=== PATIENT | female | born 1970 | race Two or more races ===

== ENCOUNTER 2020-07-02 10:18 | Emergency (ER) | payer BC ==
[2020-07-02] MEDS ORDERED: IPRATROPIUM/ALBUTEROL 0.5-2.5 MG/3 ML AMPUL NEB ONE (10:42)
[2020-07-02] MEDS ORDERED: PREDNISONE 20 MG TABLET PO ONE (10:42)
[2020-07-02] MEDS: ALBUTEROL SULFATE 0.083% NEB 2.5 MG/3 ML AMPUL NEB SCH ×2 (10:59→11:19)
[2020-07-02] MEDS ORDERED: NORMAL SALINE 1000 ML 1,000 ML IV ONE (11:12)
--- NOTE | 2020-07-02 11:14 | RADIOLOGY REPORT (SQ) ---
EXAM DESCRIPTION: CHEST SINGLE VIEW IMAGES COMPLETED DATE/TIME: 07/02/2020 11:03 am REASON FOR STUDY: SOB COMPARISON: None. EXAM PARAMETERS: NUMBER OF VIEWS: One view. TECHNIQUE: Single frontal radiographic view of the chest acquired. RADIATION DOSE: NA LIMITATIONS: None. FINDINGS: LUNGS AND PLEURA: Low lung volumes. No opacities, masses or pneumothorax. No pleural effu michel. MEDIASTINUM AND HILAR STRUCTURES: No masses. Contour normal. HEART AND VASCULAR STRUCTURES: Heart normal in size. Normal vasculature. BONES: No acute findings. HARDWARE: None in the chest. OTHER: No other significant finding. IMPRESSION: Low lung volumes without evidence of acute cardiopulmonary process. TECHNICAL DOCUMENTATION: JOB ID: [id number] 2010 [employer]- All Rights Reserved Reading location - IP/workstation name: [email or web address]
[2020-07-02 11:33] LABS: ABSOLUTE MONOCYTES (AUTO) 0.9 10^3/uL (0.1-1.4); ABSOLUTE NEUT (AUTO) 15.1 10^3/uL (1.7-8.2); BASOPHILS % (AUTO) 0.3 % (0-2); EOSINOPHILS % (AUTO) 0.1 % (0-6); HEMATOCRIT 37.4 % (36.0-47.0); HEMOGLOBIN 12.4 g/dL (12.0-15.5); LYMPHOCYTES % (AUTO) 5.6 % (13-45); MEAN CORPUSCULAR HEMOGLOBIN 27.2 pg (27.0-33.4); MEAN CORPUSCULAR HGB CONC 33.2 g/dL (32.0-36.0); MEAN CORPUSCULAR VOLUME 82 fl (80-97); MONOCYTES % (AUTO) 5.3 % (3-13); PLATELET COUNT 355 10^3/uL (150-450); RED BLOOD COUNT 4.57 10^6/uL (3.72-5.28); RED CELL DISTRIBUTION WIDTH 13.6 % (11.5-14.0); SEGMENTED NEUTROPHILS % (AUTO) 88.7 % (42-78); TOTAL CELLS COUNTED % (AUTO) 100 %
--- NOTE | 2020-07-02 11:50 | ER Document Report ---
Entered by BAKARI WATSON SCRIBE 07/02/20 1114 Acting as scribe for:ARLEEN EASON MD ED Respiratory Problem - General Chief Complaint: Shortness Of Breath Stated Complaint: COUGH Time Seen by Provider: 07/02/20 11:01 Information source: Patient Notes: This 49 year old female patient with asthma presents to the emergency department today with complaints of shortness of breath for the past two weeks. Patient states she has also had a cough bringing up a dark yellow sputum. She did get a flu shot this year. Patient had a fever on arrival here. At baseline patient reports she uses her inhalers daily. - Related Data Allergies/Adverse Reactions: shellfish derived Allergy (Verified 07/02/20 10:39) PCN Allergy (Uncoded 07/02/20 10:39) Home Medications: ALBUTEROL. BREO Past Medical History - General Information source: Patient - Social History Smoking Status: Never Smoker Cigarette use (# per day): No Frequency of alcohol use: None Drug Abuse: None Lives with: Spouse/Significant other Family History: Reviewed & Not Pertinent Patient has homicidal ideation: No - Past Medical History Cardiac Medical History: Reports: Hx Hypercholesterolemia - previously medicated, now under control Pulmonary Medical History: Reports: Hx Asthma GI Medical History: Reports: Hx Gastroesophageal Reflux Disease Traumatic Medical History: Reports: Hx Fractures Past Surgical History: Reports: Hx Orthopedic Surgery - right tib/fib ORIF Review of Systems - Review of Systems Constitutional: See HPI, Fever EENT: No symptoms reported Cardiovascular: No symptoms reported Respiratory: See HPI, Cough, Short of breath, Sputum - dark yellow, Wheezing Gastrointestinal: No symptoms reported Genitourinary: No symptoms reported Female Genitourinary: Last menstrual period - currently on period Musculoskeletal: No symptoms reported Skin: No symptoms reported Hematologic/Lymphatic: No symptoms reported Neurological/Psychological: No symptoms reported -: Yes All other systems reviewed and negative Physical Exam - Vital signs Vitals: Temp Pulse Resp BP Pulse Ox 101.7 F H 120 H 24 H 149/76 H 94 07/02/20 10:29 07/02/20 10:29 07/02/20 10:29 07/02/20 10:29 07/02/20 10:29 - Notes Notes: Physical Exam: General: Alert, appears short of breath. HEENT: Normocephalic. Atraumatic. PERRL. Extraocular movements intact. Oropharynx clear. Neck: Supple. Non-tender. Respiratory: Moderate respiratory distress. Dyspneic. Wheezing rhonchi bilaterally. Retractions. Cardiovascular: Tachycardic, regular rhythm. Abdominal: Obese. Non-tender. No distension. Normal Bowel Sounds. Back: No gross abnormalities. Extremities: Moves all four extremities. Upper extremities: Normal inspection. Normal ROM. Lower extremities: Normal inspection. No edema. Normal ROM. Neurological: Normal cognition. AAOx4. Normal speech. Psychological: Normal affect. Normal Mood. Skin: Warm. Dry. Normal color. Course - Re-evaluation Re-evalutation: 07/02/20 14:40 After breathing treatments, the patient wheezes have cleared. She now has a bronchitis type cough. The patient will be placed on antibiotics, as she does report coughing up a thick green and yellow sputum. She does have risk factors which include her chronic asthma requiring her to use her inhaler several times a day normally, much more frequently now that she has gotten sick. The patient was evaluated during the global COVID-19 pandemic and that diagnosis was suspected/considered upon their initial presentation. Their evaluation, treatment and testing was consistent with current guidelines for patients who present with complaints or symptoms that may be related to COVID-19. - Vital Signs Vital signs: Temp Pulse Resp BP Pulse Ox 100.4 F 126 H 22 H 164/87 H 93 07/02/20 13:04 07/02/20 12:16 07/02/20 12:16 07/02/20 12:16 07/02/20 12:16 - Laboratory Results Result Diagrams: 07/02/20 11:09 07/02/20 11:09 Laboratory Results Interpreted: 07/02/20 07/02/20 11:09 11:09 WBC 17.0 H Lymph % (Auto) 5.6 L Absolute Neuts (auto) 15.1 H Seg Neutrophils % 88.7 H Sodium 134.6 L Creatinine 0.49 L Glucose 163 H Critical Laboratory Results Reviewed: No Critical Results - Radiology Results Critical Radiology Results Reviewed: No Critical Results - Low lung volumes without acute cardiopulmonary abnormalities. - EKG Interpretation by Sd EKG shows normal: Sinus rhythm, [place], Intervals, QRS Complexes. abnormal: ST-T Waves - Nonspecific inferior T abnormalities Rate: Tachycardia - 118 [place]/QRS: Left axis deviation Discharge - Discharge Clinical Impression: Bronchitis, acute, with bronchospasm Condition: Stable Disposition: HOME, SELF-CARE Instructions: COVID-19 Guidance for Persons Under Investigation Additional Instructions: Bronchitis with Bronchospasm (Wheezing) You have bronchitis with bronchospasm (wheezing). Sometimes people develop wheezing with a chest cold. This occurs either because of an underlying tendency toward asthma or because the virus itself irritates the bronchial tubes. This irritation causes cough, shortness of breath, and wheezing. Emergency treatment of bronchospasm may include adrenaline shots or bronchodilator aerosol. You may feel lightheaded and have a rapid pulse for an hour or two. Rest and get plenty of fluids. At home, we'll treat you with a bronchodilator inhaler. Corticosteroids may be required for some patients. Until you recover, avoid chemical fumes, dusts, pollens, and exercising in very cold or dry air. If you smoke, stop now! Most cases of bronchitis get better without antibiotics. We prescribe antibiotics when we believe bacteria are damaging your airways, or if there's high risk the bronchitis will worsen into pneumonia. Increase your fluid intake. A cool mist humidifier may make your lungs more comfortable. An expectorant (cough medicine that loosens phlegm) can help. Repeated episodes of bronchitis and bronchospasm may result in lung damage -- for example, chronic bronchitis, recurrent pneumonias, or emphysema. If you develop a fever, increased wheezing, chest pain, or severe shortness of breath, you should contact the doctor immediately. Take medications as prescribed. Start the prednisone tomorrow-- you had today's dose here in the emergency room. Try Robitussin-DM or Delsym DM to help control your cough, in addition to the Tessalon Perles that were prescribed to help with your cough. Use your inhalers as needed for wheezing. Drink plenty of fluids throughout the day and evening. Get plenty of rest. Follow-up with your primary care provider if not improving. Return to work Sunday unless your Covid test is positive, or you have not improved enough to return to work. RETURN TO THE EMERGENCY ROOM IF ANY NEW OR WORSENING SYMPTOMS. Prescriptions: Prednisone [Deltasone 10 mg Tablet] 10 mg PO ASDIR PRN #21 tablet PRN Reason: Doxycycline Hyclate 100 mg PO BID #20 tablet. Albuterol Sulfate [Proair Hfa Inhalation Aerosol 8.5 gm Mdi] 2 puff IH ASDIR PRN #1 mdi PRN Reason: Benzonatate [Tessalon Perles 100 mg Capsule] 100 mg PO ASDIR PRN #30 capsule PRN Reason: Albuterol Sulfate [Ventolin 0.083% Neb 2.5 mg/3 mL Ampul] 1 vial NEB Q4 PRN #50 vial PRN Reason: Forms: Return to Work I personally performed the services described in the documentation, reviewed and edited the documentation which was dictated to the scribe in my presence, and it accurately records my words and actions.
[2020-07-02] MEDS ORDERED: ACETAMINOPHEN 325 MG TABLET PO ONE (11:53)
[2020-07-02 11:54] LABS: ALBUMIN 4.1 g/dL (3.5-5.0); ALKALINE PHOSPHATASE 73 U/L (38-126); ANION GAP 8 (5-19); ASPARTATE AMINO TRANSFERASE 24 U/L (14-36); BILIRUBIN,TOTAL 1.1 mg/dL (0.2-1.3); BLOOD UREA NITROGEN 13 mg/dL (7-20); CALCIUM 8.8 mg/dL (8.4-10.2); CARBON DIOXIDE 26 mmol/L (22-30); CHLORIDE 101 mmol/L (98-107); GLUCOSE 163 mg/dL (75-110); POTASSIUM 3.9 mmol/L (3.6-5.0); TOTAL PROTEIN 7.9 g/dL (6.3-8.2)
[2020-07-02 12:54] LABS: A TYPE INFLUENZA AG NEGATIVE (NEGATIVE); B INFLUENZA AG NEGATIVE (NEGATIVE)
[2020-07-02 15:02] VITALS: BP 137/78
--- NOTE | 2020-07-03 17:23 | EKG REPORT ---
SEVERITY:- ABNORMAL ECG - SINUS TACHYCARDIA BORDERLINE LEFT AXIS DEVIATION NONSPECIFIC T ABNORMALITIES, INFERIOR LEADS : Confirmed by: Hina Us MD 03-Jul-2020 17:22:42
== END 2020-07-02 15:01 | disposition home or self-care (01) ==
LOC: ER 10:18
DX: J20.9 Acute bronchitis, unspecified (principal); R06.02 Shortness of breath; R05 Cough; R50.9 Fever, unspecified; E66.9 Obesity, unspecified; Z20.828 Contact with and (suspected) exposure to other viral communicable diseases; E78.00 Pure hypercholesterolemia, unspecified; Z88.0 Allergy status to penicillin
CPT/HCPCS: 93005; 94640 ×2; 99285; 96360; 36415; 87040; 87070; 87205; 83605; 85025; 87077; 80053; 87186; 87804; 71045; 93010; U0003; J7512; J7030; J7613; C9803; 87635

== ENCOUNTER 2020-07-05 23:29 | Observation (INO) | payer BC ==
[2020-07-06] MEDS ORDERED: METHYLPREDNISOLONE INJ 125 MG/2 ML SDV IV ONE (00:16)
[2020-07-06] MEDS ORDERED: IPRATROPIUM/ALBUTEROL 0.5-2.5 MG/3 ML AMPUL NEB ONE ×2 (00:16→05:53)
[2020-07-06] MEDS ORDERED: ACETAMINOPHEN WITH CODEINE #3 TABLET PO ONE (00:16)
--- NOTE | 2020-07-06 00:17 | ER Document Report ---
ED Medical Screen (RME) - General Chief Complaint: Breathing Difficulty Stated Complaint: BREATHING DIFFICULTY Time Seen by Provider: 07/06/20 00:12 Mode of Arrival: Ambulatory Information source: Patient Notes: Patient is a 49-year-old female returns emergency room complaining of increased shortness of breath with coughing. Patient was seen Christo night diagnosed with bronchitis and sent home on albuterol inhaler and some steroids and Tessalon Perles and an antibiotic. Patient states she is not getting any better. She states that she was tested for the coronavirus and was negative. She denies any other medical problems with exception of hypertension. And she had some GI problems several years ago. Patient is currently on a steroid taper. Physical examination: Patient is a well-nourished well-developed 49-year-old female no apparent distress but is definitely uncomfortable appearing and active hacking coughing during examination. Cardiac: Patient is displaying a tachycardic rate at 109 bpm on monitor no murmurs were auscultated. Lungs: Bilateral breath sounds are increased throughout but patient has some beer wheezing inspiratory and expiratory with some faint rhonchi scattered throughout the lung salazar in the upper areas. Abdomen: Bowel sounds present all 4 quads nontender to palpate. I have greeted and performed a rapid initial assessment of this patient. A co mprehensive ED assessment and evaluation of the patient, analysis of test results and completion of the medical decision making process will be conducted by additional ED providers. Dictation of this chart was performed using voice recognition software; therefore, there may be some unintended grammatical errors. - Related Data Allergies/Adverse Reactions: shellfish derived Allergy (Verified 07/02/20 10:39) PCN Allergy (Uncoded 07/02/20 10:39) Past Medical History - Past Medical History Cardiac Medical History: Reports: Hx Hypercholesterolemia - previously medicated, now under control Pulmonary Medical History: Reports: Hx Asthma GI Medical History: Reports: Hx Gastroesophageal Reflux Disease Traumatic Medical History: Reports: Hx Fractures Past Surgical History: Reports: Hx Orthopedic Surgery - right tib/fib ORIF Physical Exam - Vital signs Vitals: Temp Pulse Resp BP Pulse Ox 98.6 F 109 H 24 H 150/75 H 94 07/05/20 23:46 07/05/20 23:46 07/05/20 23:46 07/05/20 23:46 07/05/20 23:46 Course - Vital Signs Vital signs: Temp Pulse Resp BP Pulse Ox 98.6 F 109 H 24 H 150/75 H 94 07/05/20 23:46 07/05/20 23:46 07/05/20 23:46 07/05/20 23:46 07/05/20 23:46
[2020-07-06] MEDS ORDERED: DEXAMETHASONE SOD PHOS INJ 10 MG/1 ML VIAL IV ONE (01:09)
[2020-07-06] MEDS ORDERED: DEXAMETHASONE 4 MG TABLET PO ONE (01:26)
--- NOTE | 2020-07-06 01:50 | RADIOLOGY REPORT (SQ) ---
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 Comparison: Chest radiograph performed 07/06/2020. Findings: The cardiomediastinal silhouette is normal in size. No pneumothorax is seen. No acute airspace opacities are seen. No discrete pleural effusion is apparent. Impression: No acute airspace opacities are seen.
[2020-07-06 02:37] LABS: ABSOLUTE BASOPHILS # (AUTO) 0.1 10^3/uL (0.0-0.2); ABSOLUTE EOSINOPHILS # (AUTO) 0.1 10^3/uL (0.0-0.6); ABSOLUTE LYMPHOCYTES (AUTO) 2.1 10^3/uL (0.5-4.7); ABSOLUTE MONOCYTES (AUTO) 1.2 10^3/uL (0.1-1.4); ABSOLUTE NEUT (AUTO) 8.8 10^3/uL (1.7-8.2); BASOPHILS % (AUTO) 0.5 % (0-2); EOSINOPHILS % (AUTO) 0.9 % (0-6); HEMOGLOBIN 10.6 g/dL (12.0-15.5); LYMPHOCYTES % (AUTO) 16.9 % (13-45); MEAN CORPUSCULAR HEMOGLOBIN 27.2 pg (27.0-33.4); MEAN CORPUSCULAR VOLUME 83 fl (80-97); MONOCYTES % (AUTO) 9.7 % (3-13); PLATELET COUNT 372 10^3/uL (150-450); RED BLOOD COUNT 3.88 10^6/uL (3.72-5.28); RED CELL DISTRIBUTION WIDTH 13.7 % (11.5-14.0); TOTAL CELLS COUNTED % (AUTO) 100 %; WHITE BLOOD COUNT 12.2 10^3/uL (4.0-10.5)
[2020-07-06 02:50] LABS: ALBUMIN 3.3 g/dL (3.5-5.0); ALKALINE PHOSPHATASE 78 U/L (38-126); ANION GAP 9 (5-19); ASPARTATE AMINO TRANSFERASE 19 U/L (14-36); BILIRUBIN,DIRECT 0.2 mg/dL (0.0-0.4); BILIRUBIN,TOTAL 0.6 mg/dL (0.2-1.3); BLOOD UREA NITROGEN 9 mg/dL (7-20); CALCIUM 8.8 mg/dL (8.4-10.2); CARBON DIOXIDE 28 mmol/L (22-30); CHLORIDE 101 mmol/L (98-107); GLUCOSE 128 mg/dL (75-110); POTASSIUM 3.4 mmol/L (3.6-5.0); TOTAL PROTEIN 6.5 g/dL (6.3-8.2)
[2020-07-06] MEDS ORDERED: DIPHENHYDRAMINE HCL 50 MG/ML VIAL IV ONE (03:18)
[2020-07-06] MEDS ORDERED: FAMOTIDINE INJ/PF 20 MG/2 ML SDV IV ONE (03:18)
--- NOTE | 2020-07-06 05:41 | RADIOLOGY REPORT (SQ) ---
EXAM: CT chest angiography with intravenous contrast CLINICAL DATA: 49 years Female elevated d-dimer 1.20; shortness of breath CREAT 0.50. TECHNICAL DATA: Following the administration of intravenous contrast, multiple high-resolution axial images of the chest were performed followed by sagittal and coronal reconstructed images. Coronal oblique MIP images were also performed. The CT study is performed according to ALARA (as low as reasonably achievable) or ALARA/IMAGE GENTLY, with automatic adjustment of mA and/or kV according to patient size. Performed on: 07/06/2020 at 4:20 AM COMPARISONS: Chest x-ray performed on 07/06/2020 and 07/02/2020 FINDINGS: There is adequate visualization and contrast opacification of pulmonary arteries. Evaluation of the subsegmental branches is limited due to breathing motion artifact. No definite intra-arterial filling defects are identified to suggest acute or chronic pulmonary embolism. The thoracic aorta is normal in caliber and contour without evidence of aneurysm or dissection. The lungs are well-expanded. There is patchy airspace disease throughout the posterior left lower lobe and a portion of the posterior right lower lobe concerning for multifocal pneumonia. There are no pleural effusions. There is no pneumothorax. The central airways are patent. The heart is normal in size. There is no pericardial effusion. There is no reflux of contrast into the hepatic veins to suggest right heart strain.The RV/LV ratio is within normal limits. There is no evidence of hilar, mediastinal or axillary lymphadenopathy. No acute osseous abnormality is identified. The visualized upper abdominal structures are unremarkable. IMPRESSION: 1. No definite CT evidence to suggest acute or chronic pulmonary embolism, aortic aneurysm or aortic dissection. Evaluation of the subsegmental branches is limited due to breathing motion artifact. 2. Patchy airspace disease throughout the posterior left lower lobe and a portion of the posterior right lower lobe concerning for multifocal pneumonia.
--- NOTE | 2020-07-06 06:01 | ER Document Report ---
ED Respiratory Problem - General Chief Complaint: Shortness Of Breath Stated Complaint: BREATHING DIFFICULTY Time Seen by Provider: 07/06/20 00:12 Primary Care Provider: DALLIN ODEN MD [Primary Care Provider] - Follow up as needed Mode of Arrival: Ambulatory Notes: Patient is a 49-year-old female who presents the emergency department with a chief complaint of shortness of breath, cough, and not feeling better after being placed on antibiotics. Patient is currently taking doxycycline. States that she has been using her albuterol inhaler and steroids, but is not getting any better. On 01 July, the patient tested negative for COVID-19. - Related Data Allergies/Adverse Reactions: shellfish derived Allergy (Verified 07/02/20 10:39) PCN Allergy (Uncoded 07/02/20 10:39) Home Medications: ALBUTEROL INH/NEBULIZER. STERIODS. ANTIBIOTICS. TESSALON PERLES. Past Medical History - General Information source: Patient - Social History Smoking Status: Never Smoker Family History: Reviewed & Not Pertinent - Past Medical History Cardiac Medical History: Reports: Hx Hypercholesterolemia - previously medicated, now under control, Hx Hypertension Pulmonary Medical History: Reports: Hx Asthma GI Medical History: Reports: Hx Gastroesophageal Reflux Disease Traumatic Medical History: Reports: Hx Fractures Past Surgical History: Reports: Hx Orthopedic Surgery - right tib/fib ORIF Review of Systems - Review of Systems Notes: REVIEW OF SYSTEMS: CONSTITUTIONAL : Denies recent illness. Denies recent unintentional weight loss. Denies fever, chills, or sweats. EENT: Denies eye, ear, throat, or mouth pain, discharge, or symptoms. Denies nasal or sinus congestion. CARDIOVASCULAR: Denies chest pain. RESPIRATORY: See HPI. GASTROINTESTINAL: Denies nausea, vomiting, and diarrhea. Denies abdominal pain. Denies constipation. GENITOURINARY: Denies difficulty urinating, burning, blood in urine, urgency or frequency. MUSCULOSKELETAL: Denies neck and back pain. Denies joint pain or swelling. SKIN: Denies rash, itchiness, or lesions HEMATOLOGIC : Denies easy bruising or bleeding. LYMPHATIC: Denies swollen, painful, enlarged glands. NEUROLOGICAL: Denies no numbness or tingling denies weakness. Denies headache. Denies altered mental status. Denies alteration in speech. PSYCHIATRIC: Denies stress, anxiety, alteration in sleep patterns, or depression. All other systems reviewed and negative. Physical Exam - Vital signs Vitals: Temp Pulse Resp BP Pulse Ox 98.6 F 109 H 24 H 150/75 H 94 07/05/20 23:46 07/05/20 23:46 07/05/20 23:46 07/05/20 23:46 07/05/20 23:46 - Notes Notes: PHYSICAL EXAMINATION: GENERAL: Appears well, healthy, well-nourished, no acute distress. HEAD: Normocephalic, atraumatic. EYES: PERRL, conjunctiva normal, all extraocular movements intact, sclera nonicteric ENT: Moist mucous membranes. NECK: Supple, no noticeable swelling, redness, rash. Normal range of motion. LUNGS: Expiratory wheezes and diminished expiratory lung sounds noted throughout all lung salazar. CARDIOVASCULAR: S1-S2, regular rate, regular rhythm. Radial pulses 2+, normal. ABDOMEN: Normoactive bowel sounds. Soft, nontender, no guarding, no rebound tenderness, and no masses palpated. EXTREMITIES: Normal strength and range of motion, no pitting or edema. No cyanosis. NEUROLOGICAL: Moves all extremities upon command. Strength 5/5 in all extremities. PSYCH: Normal mood, normal affect. SKIN: Warm, dry. No rash, lesions, ulcerations noted. Normal skin turgor. Course - Re-evaluation Re-evalutation: 07/06/20 03:02 Hematology shows a leukocytosis of 12,200. D-dimer is 1.20. Potassium is 3.4. Lactic acid is unremarkable. Since the D-dimer is elevated, we will send the patient for a CTA of the chest. 07/06/20 06:45 CTA of the chest does not show any pulmonary emboli, but there was artifact. Patient does have pneumonia. Will call the daytime hospitalist service for admission. 07/06/20 08:16 I spoke with YOAN Freeman from the hospitalist service. Patient will be admitted for observation. - Vital Signs Vital signs: Temp Pulse Resp BP Pulse Ox 98.5 F 99 16 131/61 H 99 07/06/20 06:57 07/06/20 01:40 07/06/20 06:57 07/06/20 06:57 07/06/20 06:57 - Laboratory Results Result Diagrams: 07/06/20 02:19 12/22/20 02:19 Laboratory Results Interpreted: 07/06/20 07/06/20 07/06/20 02:19 02:19 02:19 WBC 12.2 H Hgb 10.6 L Hct 32.0 L Absolute Neuts (auto) 8.8 H D-Dimer 1.20 H Potassium 3.4 L Creatinine 0.50 L Glucose 128 H Albumin 3.3 L Critical Laboratory Results Reviewed: No Critical Results - Radiology Results Critical Radiology Results Reviewed: No Critical Results Discharge - Discharge Clinical Impression: Asthma exacerbation Qualifiers: Asthma severity: moderate Asthma persistence: unspecified Qualified Code(s): J45.901 - Unspecified asthma with (acute) exacerbation Pneumonia Qualifiers: Pneumonia type: due to unspecified organism Laterality: bilateral Lung location: lower lobe of lung Qualified Code(s): J18.9 - Pneumonia, unspecified organism Condition: Stable Disposition: ADMITTED OBSERVATION Admitting Provider: Noman (Hospitalist) Unit Admitted: Telemetry Referrals: DALLIN ODEN MD [Primary Care Provider] - Follow up as needed
[2020-07-06] MEDS ORDERED: CEFTRIAXONE INJ 1000 MG VIAL IV ONE (06:02)
--- NOTE | 2020-07-06 07:24 | EKG REPORT ---
SEVERITY:- ABNORMAL ECG - SINUS TACHYCARDIA NONSPECIFIC T ABNORMALITIES, INFERIOR LEADS : Confirmed by: Ben Salas MD 06-Jul-2020 07:23:43
[2020-07-06] MEDS ORDERED: ACETAMINOPHEN 325 MG TABLET PO PRN (09:38)
[2020-07-06] MEDS ORDERED: ALBUTEROL SULFATE 0.083% NEB 2.5 MG/3 ML AMPUL NEB PRN (09:38)
[2020-07-06] MEDS: IPRATROPIUM/ALBUTEROL 0.5-2.5 MG/3 ML AMPUL NEB SCH ×5 (10:53→23:58)
[2020-07-06] MEDS: ENOXAPARIN SODIUM INJ 30 MG/0.3 ML DISP.SYRIN SUBCUT SCH (10:59)
[2020-07-06] MEDS: METHYLPREDNISOLONE INJ 125 MG/2 ML SDV IV SCH ×2 (18:28→22:12)
[2020-07-06] MEDS: PANTOPRAZOLE SODIUM 20 MG TABLET.DR PO SCH (18:47)
[2020-07-06] MEDS: DEXAMETHASONE SOD PHOS INJ 10 MG/1 ML VIAL IV SCH (18:48)
--- NOTE | 2020-07-06 20:52 | PDOC H&P ---
History of Present Illness Admission Date/PCP: 07/06/20 08:11 DALLIN ODEN MD Patient complains of: Cough, shortness of breath History of Present Illness: KRISTY KEANE is a 49 year old female with past medical history of asthma who presents to the ED for evaluation of 3-week history of simply worsening shortness of breath and productive cough. Reports dark yellow sputum and associated left-sided rib pain with cough. Patient was evaluated on 07/02/2020 for similar symptoms. Received breathing treatment was discharged home on doxycycline and steroids. Denies improvement in symptoms with treatment thus far. States symptoms consistent with previous asthma exacerbations. Historically has 2 asthma exacerbations per year with last summer 2018. She uses her Breo on a daily basis and typically uses rescue inhaler 3 times per week. Interestingly enough patient reports 1 week history of left lower extremity swelling greater than right, though denies edema erythema or warmth. States her job is rather active. Denies OCP use. No history of cancer. With out recent surgery or travel. Covid 19 test negative 07/01/2020. Evaluation in the emergency department patient is hemodynamically stable and afebrile. Not requiring oxygen supplementation at this time. CBC significant for leukocytosis. D-dimer elevated at 1.2. Potassium 3.4. Negative lactic acid. CT of the chest completed without pulmonary emboli notable for pneumonia. Patient was treated with single dose of ceftriaxone and IV steroid and referred to the hospitalist team for further evaluation and management. Past Medical History Cardiac Medical History: Reports: Hyperlipidema - previously medicated, now under control, Hypertension Denies: DVT Pulmonary Medical History: Reports: Asthma, Bronchitis Neurological Medical History: Denies: Ischemic CVA, Multiple Sclerosis, Seizures Endocrine Medical History: Reports: Obesity Denies: Diabetes Mellitus Type 1, Diabetes Mellitus Type 2 Renal/ Medical History: Denies: Nephrolithiasis GI Medical History: Reports: Gastroesophageal Reflux Disease Musculoskeltal Medical History: Reports: Arthritis Psychiatric Medical History: Reports: Depression Hematology: Denies: Anemia, Bleeding Tendencies Infectious Medical History: Denies: Hepatitis B, Hepatitis C Past Surgical History Past Surgical History: Reports: Orthopedic Surgery - right tib/fib ORIF Social History Information Source: Patient Lives with: Family Smoking Status: Never Smoker Electronic Cigarette use?: No Frequency of Alcohol Use: None Hx Recreational Drug Use: No Drugs: None Hx Prescription Drug Abuse: No - Advance Directive Resuscitation Status: Full Code Family History Family History: CAD, Malignancy, Other - Asthma Parental Family History Reviewed: Yes Children Family History Reviewed: Yes Sibling(s) Family History Reviewed.: Yes Medication/Allergy Home Medications: Doxycycline Hyclate 100 mg PO BID #20 tablet. 07/02/20 Prednisone [Deltasone 10 mg Tablet] 10 mg PO ASDIR PRN #21 tablet 07/02/20 Albuterol Sulfate [Proair Hfa Inhalation Aerosol 8.5 gm Mdi] 2 puff IH Q6HP PRN 07/06/20 Albuterol Sulfate [Ventolin 0.083% Neb 2.5 mg/3 mL Ampul] 1 vial NEB Q4HP PRN 07/06/20 Benzonatate [Tessalon Perles 100 mg Capsule] 100 mg PO Q8HP PRN 07/06/20 Allergies/Adverse Reactions: shellfish derived Allergy (Verified 07/02/20 10:39) PCN Allergy (Uncoded 07/02/20 10:39) Review of Systems Constitutional: ABSENT: anorexia, chills, fatigue, fever(s), headache(s), night sweats, weakness Eyes: ABSENT: visual disturbances Cardiovascular: ABSENT: chest pain, edema, orthropnea, palpitations Respiratory: PRESENT: cough, dyspnea, sputum. ABSENT: hemoptysis Gastrointestinal: ABSENT: abdominal pain, constipation, diarrhea, nausea, vomiting Genitourinary: ABSENT: difficulty urinating, dysuria, hematuria Musculoskeletal: PRESENT: other - Left-sided rib pain that radiates into the back. ABSENT: deformity Integumentary: ABSENT: diaphoresis, erythema, rash Neurological: ABSENT: abnormal movements, confusion, dizziness, syncope, vertigo, weakness Psychiatric: ABSENT: anxiety, depression Endocrine: ABSENT: polydipsia, polyphagia, polyuria Hematologic/Lymphatic: ABSENT: easy bleeding, lymphadenopathy Allergic/Immunologic: PRESENT: seasonal rhinorrhea Physical Exam Vital Signs: Temp Pulse Resp BP Pulse Ox 98.3 F 101 H 16 130/60 H 96 07/06/20 16:00 07/06/20 20:02 07/06/20 20:02 07/06/20 16:00 07/06/20 20:02 Intake & Output 07/05/20 07/06/20 07/07/20 06:59 06:59 06:59 Intake Total 770 Balance 770 Weight 108.3 kg General appearance: PRESENT: no acute distress, cooperative, obese - BMI 30.5 Head exam: PRESENT: atraumatic, normocephalic Eye exam: PRESENT: EOMI, PERRLA. ABSENT: scleral icterus Mouth exam: PRESENT: moist, tongue midline Neck exam: PRESENT: full ROM. ABSENT: JVD, lymphadenopathy, tenderness Respiratory exam: PRESENT: wheezes - Expiratory wheezes and diminished expiratory lung sounds noted throughout all lung salazar.. ABSENT: chest wall tenderness Cardiovascular exam: PRESENT: RRR, +S1, +S2. ABSENT: diastolic murmur, systolic murmur Pulses: PRESENT: normal radial pulses GI/Abdominal exam: PRESENT: soft. ABSENT: distended, firm, tenderness Extremities exam: PRESENT: full ROM, pedal edema Musculoskeletal exam: PRESENT: ambulatory, full ROM. ABSENT: deformity, dislocation Neurological exam: PRESENT: alert, awake, oriented to person, oriented to place, oriented to time, oriented to situation, CN II-XII grossly intact. ABSENT: motor sensory deficit Psychiatric exam: PRESENT: appropriate affect, normal mood Skin exam: PRESENT: dry, intact, warm Results Laboratory Results: 07/06/20 02:19 07/06/20 02:19 07/06/20 07/06/20 07/06/20 02:19 02:19 02:19 WBC 12.2 H RBC 3.88 Hgb 10.6 L Hct 32.0 L MCV 83 MCH 27.2 MCHC 33.0 RDW 13.7 Plt Count 372 Seg Neutrophils % 72.0 Sodium 138.3 Potassium 3.4 L Chloride 101 Carbon Dioxide 28 Anion Gap 9 BUN 9 Creatinine 0.50 L Est GFR ( Amer) > 60 Glucose 128 H Lactic Acid 0.9 Calcium 8.8 Total Bilirubin 0.6 AST 19 Alkaline Phosphatase 78 Total Protein 6.5 Albumin 3.3 L Impressions: Chest/Abdomen CTA 07/06/20 03:03 IMPRESSION: 1. No definite CT evidence to suggest acute or chronic pulmonary embolism, aortic aneurysm or aortic dissection. Evaluation of the subsegmental branches is limited due to breathing motion artifact. 2. Patchy airspace disease throughout the posterior left lower lobe and a portion of the posterior right lower lobe concerning for multifocal pneumonia. Assessment and Plan - Diagnosis (1) Pneumonia Qualifiers: Pneumonia type: due to unspecified organism Laterality: bilateral Lung location: lower lobe of lung Qualified Code(s): J18.9 - Pneumonia, unspecified organism Is this a current diagnosis for this admission?: Yes Plan: Patient complaining of progressively worsening cough and shortness of breath regardless of outpatient therapy. CTA without PE. Patchy airspace disease throughout posterior left lower lobe concerning for multifocal pneumonia. - Likely cause elevated WBC and persistent symptoms. - Initiate CAP Therapy with azithromycin and ceftriaxone. - BC pending Repeat CBC in the morning. Monitor vital signs. (2) Asthma exacerbation Qualifiers: Asthma severity: moderate Asthma persistence: unspecified Qualified Code(s): J45.901 - Unspecified asthma with (acute) exacerbation Is this a current diagnosis for this admission?: Yes Plan: Progressive increase in symptoms regardless of outpatient therapy including prednisone, doxycycline and albuterol as needed. - Initiate IV steroid therapy with dexamethasone - Antibiotics as above - Scheduled breathing treatments - Incentive spirometer and encouraged pulm toilet. (3) Neutrophilic leukocytosis Is this a current diagnosis for this admission?: Yes Plan: WBC 12.2 with ANC 8.8. Treatment as above. Monitor on CBC in morning. (4) D-dimer, elevated Is this a current diagnosis for this admission?: Yes Plan: Elevated D-dimer 1.20 - CTA without evidence of pulmonary embolism - Rapid Covid negative - Left lower extremity swelling, venous Doppler ultrasound left lower extremity ordered pending Given obesity elevated D-dimer we will initiate prophylactic Lovenox therapy. (5) Hypokalemia Is this a current diagnosis for this admission?: Yes Plan: Potassium 3.4 on admission. -Monitor on BMP morning. (6) Left leg swelling Is this a current diagnosis for this admission?: Yes Plan: Treatment left lower extremity swelling without erythema, edema or warmth. Elevated D-dimer. Left lower extremity ultrasound pending. - Time Time Spent with patient: 35 or more minutes Medications reviewed and adjusted accordingly: Yes Anticipated Discharge Disposition: Home, Self Care Anticipated Discharge Timeframe: within 48 hours
[2020-07-06] MEDS: GUAIFENESIN 600 MG TABLET.SA PO SCH (22:12)
[2020-07-07] MEDS: IPRATROPIUM/ALBUTEROL 0.5-2.5 MG/3 ML AMPUL NEB SCH ×6 (02:37→20:05)
[2020-07-07] MEDS: PANTOPRAZOLE SODIUM 20 MG TABLET.DR PO SCH (05:19)
[2020-07-07] MEDS: METHYLPREDNISOLONE INJ 125 MG/2 ML SDV IV SCH ×2 (05:19→12:00)
[2020-07-07] MEDS: BENZONATATE 100 MG CAPSULE PO PRN ×2 (05:26→21:27)
[2020-07-07 07:08] LABS: HEMATOCRIT 33.7 % (36.0-47.0); HEMOGLOBIN 11.4 g/dL (12.0-15.5); MEAN CORPUSCULAR HEMOGLOBIN 27.8 pg (27.0-33.4); MEAN CORPUSCULAR HGB CONC 33.8 g/dL (32.0-36.0); MEAN CORPUSCULAR VOLUME 82 fl (80-97); PLATELET COUNT 417 10^3/uL (150-450); RED CELL DISTRIBUTION WIDTH 13.6 % (11.5-14.0)
[2020-07-07 07:27] LABS: ANION GAP 12 (5-19); BLOOD UREA NITROGEN 10 mg/dL (7-20); CARBON DIOXIDE 26 mmol/L (22-30); CHLORIDE 100 mmol/L (98-107); GLUCOSE 235 mg/dL (75-110)
--- NOTE | 2020-07-07 10:08 | RADIOLOGY REPORT (SQ) ---
EXAM DESCRIPTION: VENOUS UNILATERAL LOWER IMAGES COMPLETED DATE/TIME: 07/07/2020 9:55 am REASON FOR STUDY: LLE EDEMA COMPARISON: None. TECHNIQUE: Dynamic and static castellon scale and color images acquired of the left leg venous system. Se lected spectral images acquired with additional compression and augmentation maneuvers. The contralat eral common femoral vein and saphenofemoral junction were also imaged. Images stored on PACS. LIMITATIONS: None. FINDINGS: COMMON FEMORAL: Normal phasicity, compression and augmentation. No visualized echogenic ma terial on castellon scale. No defects on color images. FEMORAL: Normal compression and augmentation. No visualized echogenic material on castellon scale. No defe cts on color images. POPLITEAL: Normal compression, augmentation. No visualized echogenic material on castellon scale. No defec ts on color images. CALF VESSELS: Normal compression, augmentation. No visualized echogenic material on castellon scale. No de fects on color images. GSV and SSV: Normal compression, augmentation. No visualized echogenic material on castellon scale. No def ects on color images. ANY DEEP VENOUS INSUFFICIENCY: Not evaluated. ANY EVIDENCE OF POPLITEAL CYST: No. OTHER: No other significant finding. CONTRALATERAL COMMON FEMORAL VEIN: Normal phasicity, compression and augmentation. No visualized echogenic material on castellon scale. No de fects on color images. IMPRESSION: 1. NO EVIDENCE OF DVT OR SVT IN THE LEFT LEG. TECHNICAL DOCUMENTATION: JOB ID: [id number] 2010 [facility]- All Rights Reserved Reading location - IP/workstation name: [email or web address]
[2020-07-07] MEDS: DEXAMETHASONE SOD PHOS INJ 10 MG/1 ML VIAL IV SCH (10:10)
[2020-07-07] MEDS: ENOXAPARIN SODIUM INJ 30 MG/0.3 ML DISP.SYRIN SUBCUT SCH (10:11)
[2020-07-07] MEDS: AZITHROMYCIN 500 MG in DEXTROSE 5%-WATER 250 ML IV SCH (10:12)
[2020-07-07] MEDS: CEFTRIAXONE 1 GM/D5W RTU 1 GM/50 ML RTUPB IV SCH (10:12)
[2020-07-07] MEDS: GUAIFENESIN 600 MG TABLET.SA PO SCH ×2 (10:13→21:27)
[2020-07-07] MEDS ORDERED: ACETAMINOPHEN 325 MG TABLET PO ONE (11:15)
--- NOTE | 2020-07-07 15:21 | EKG REPORT ---
SEVERITY:- BORDERLINE ECG - SINUS TACHYCARDIA BORDERLINE T ABNORMALITIES, INFERIOR LEADS : Confirmed by: Ben Salas MD 07-Jul-2020 15:20:17
--- NOTE | 2020-07-07 17:55 | PDOC PROGRESS REPORT ---
Subjective Date:: 07/07/20 Subjective:: KRISTY KEANE is a 49 year old female with past medical history of mild persistent asthma who was admitted to the hospitalist service 07/06/2020 after failing outpatient asthma exacerbation treatment and being dx'd with pneumonia in the Ed. Patient seen on morning rounds. She is resting in bed comfortably. States that overall she is doing significantly better. Previous audible wheezing has resolved. Cough is significantly improved. Discussed with respiratory believe the patient can go to breathing treatments every 6 hours. Discussed with nursing provide me with no complaints or concerns today. Reason For Visit: ASTHMA EXACERBATION PNEUMONIA Physical Exam Vital Signs: Temp Pulse Resp BP Pulse Ox 98.0 F 115 H 18 141/86 H 94 07/07/20 12:29 07/07/20 12:29 07/07/20 12:29 07/07/20 12:29 07/07/20 12:29 Intake & Output 07/06/20 07/07/20 07/08/20 06:59 06:59 06:59 Intake Total 770 899 Balance 770 899 Weight 108.3 kg 108 kg Additional comments: General appearance: PRESENT: no acute distress, cooperative, obese - BMI 30.5 Neck exam: PRESENT: full ROM. ABSENT: JVD, lymphadenopathy, tenderness Respiratory exam: PRESENT: wheezes -expiratory wheezes significantly improved. Lung sounds audible bilaterally. Cardiovascular exam: PRESENT: RRR, +S1, +S2. ABSENT: diastolic murmur, systolic murmur GI/Abdominal exam: PRESENT: soft. ABSENT: distended, firm, tenderness Neurological exam: PRESENT: alert, awake, oriented to person, oriented to place, oriented to time, oriented to situation, CN II-XII grossly intact. ABSENT: motor sensory deficit Psychiatric exam: PRESENT: appropriate affect, normal mood Skin exam: PRESENT: dry, intact, warm Results Laboratory Results: 07/07/20 06:52 07/07/20 06:52 07/07/20 07/07/20 06:52 06:52 WBC 10.0 RBC 4.10 Hgb 11.4 L Hct 33.7 L MCV 82 MCH 27.8 MCHC 33.8 RDW 13.6 Plt Count 417 Sodium 137.8 Potassium 4.0 Chloride 100 Carbon Dioxide 26 Anion Gap 12 BUN 10 Creatinine 0.38 L Est GFR ( Amer) > 60 Glucose 235 H Calcium 9.0 Impressions: Chest/Abdomen CTA 07/06/20 03:03 IMPRESSION: 1. No definite CT evidence to suggest acute or chronic pulmonary embolism, aortic aneurysm or aortic dissection. Evaluation of the subsegmental branches is limited due to breathing motion artifact. 2. Patchy airspace disease throughout the posterior left lower lobe and a portion of the posterior right lower lobe concerning for multifocal pneumonia. Venous Doppler Study 07/07/20 00:00 IMPRESSION: 1. NO EVIDENCE OF DVT OR SVT IN THE LEFT LEG. Assessment and Plan - Diagnosis (1) Pneumonia Qualifiers: Pneumonia type: due to unspecified organism Laterality: bilateral Lung location: lower lobe of lung Qualified Code(s): J18.9 - Pneumonia, unspecified organism Is this a current diagnosis for this admission?: Yes Plan: Overall significant improvement in patient symptoms with treatment thus far. VSS, O2 sat >95% on RA. WBC WNL. Patient presented complaining of progressively worsening cough and shortness of breath regardless of outpatient therapy. CTA without PE. Patchy airspace disease throughout posterior left lower lobe concerning for multifocal pneumonia. - Likely cause elevated WBC and persistent symptoms. - Initiate CAP Therapy with azithromycin and ceftriaxone. - BC without growth 24 hours. Plan to de-escalate to p.o. Levaquin tomorrow. (2) Asthma exacerbation Qualifiers: Asthma severity: moderate Asthma persistence: unspecified Qualified Code(s): J45.901 - Unspecified asthma with (acute) exacerbation Is this a current diagnosis for this admission?: Yes Plan: Progressive increase in symptoms regardless of outpatient therapy including prednisone, doxycycline and albuterol as needed. - Initiate IV steroid therapy with dexamethasone, plan to de-escalate to prednisone p.o. tomorrow. - Antibiotics as above - Scheduled breathing treatments - Incentive spirometer and encouraged pulm toilet. (3) Neutrophilic leukocytosis Is this a current diagnosis for this admission?: Yes Plan: Resolved. WBC 10. - WBC 12.2 with ANC 8.8. - Treatment as above. (4) D-dimer, elevated Is this a current diagnosis for this admission?: Yes Plan: Elevated D-dimer 1.20 - CTA without evidence of pulmonary embolism - Rapid Covid negative - Left lower extremity swelling, venous Doppler ultrasound left lower extremity ordered pending Given obesity elevated D-dimer we will initiate prophylactic Lovenox therapy. (5) Hypokalemia Is this a current diagnosis for this admission?: Yes Plan: Resolved. 4.0 today. - Potassium 3.4 on admission. (6) Left leg swelling Is this a current diagnosis for this admission?: Yes Plan: On initial presentation left lower extremity swelling without erythema, edema or warmth. Elevated D-dimer. Left lower extremity ultrasound without DVT. - Plan Summary Summary: Transition from IV to oral medications tomorrow with plan to discharge home tomorrow. - Time Time Spent with patient: 25-34 minutes Medications reviewed and adjusted accordingly: Yes Anticipated Discharge Disposition: Home, Self Care Anticipated Discharge Timeframe: within 24 hours
[2020-07-08] MEDS: IPRATROPIUM/ALBUTEROL 0.5-2.5 MG/3 ML AMPUL NEB SCH ×3 (02:01→13:42)
[2020-07-08] MEDS: PANTOPRAZOLE SODIUM 20 MG TABLET.DR PO SCH (05:26)
[2020-07-08] MEDS: CEFTRIAXONE 1 GM/D5W RTU 1 GM/50 ML RTUPB IV SCH (09:16)
[2020-07-08] MEDS: GUAIFENESIN 600 MG TABLET.SA PO SCH (09:17)
[2020-07-08] MEDS: DEXAMETHASONE SOD PHOS INJ 10 MG/1 ML VIAL IV SCH (09:17)
[2020-07-08] MEDS: ENOXAPARIN SODIUM INJ 30 MG/0.3 ML DISP.SYRIN SUBCUT SCH (09:18)
[2020-07-08] MEDS: AZITHROMYCIN 500 MG in DEXTROSE 5%-WATER 250 ML IV SCH (10:24)
[2020-07-08 13:38] VITALS: BP 130/60
--- NOTE | 2020-07-08 17:37 | PDOC DISCHARGE SUMMARY ---
Impression - Admit/DC Date/PCP Admission Date/Primary Care Provider: 07/06/20 08:11 DALLIN ODEN MD Discharge Date: 07/08/20 - Discharge Diagnosis (1) Pneumonia Is this a current diagnosis for this admission?: Yes (2) Asthma exacerbation Is this a current diagnosis for this admission?: Yes (3) Neutrophilic leukocytosis Is this a current diagnosis for this admission?: Yes (4) D-dimer, elevated Is this a current diagnosis for this admission?: Yes (5) Hypokalemia Is this a current diagnosis for this admission?: Yes (6) Left leg swelling Is this a current diagnosis for this admission?: Yes - Assessment Summary: Transition from IV to oral medications tomorrow with plan to discharge home tomorrow. - Additional Information Resuscitation Status: Full Code Discharge Diet: Regular Discharge Activity: Activity As Tolerated Referrals: DALLIN ODEN MD [Primary Care Provider] - 07/08/20 1:13 pm (07/08/20 1313 LEFT A MESSAGE AND PROVIDER WILL CALL PT WITH FOLLOW UP APT) Prescriptions: Prednisone [Deltasone 20 mg Tablet] 40 mg PO DAILY 2 Days #4 tablet Levofloxacin [Levaquin 750 mg Tablet] 750 mg PO DAILY #3 tab Guaifenesin [Mucinex Sr 600 mg Tablet.sa] 1,200 mg PO Q12 #10 tablet.sa Benzonatate [Tessalon Perles 100 mg Capsule] 100 mg PO Q8HP PRN #30 PRN Reason: Cough Home Medications: Albuterol Sulfate [Proair HFA Inhalation Aerosol 8.5 gm MDI] 2 puff IH Q6HP PRN 07/06/20 Albuterol Sulfate [Ventolin 0.083% Neb 2.5 mg/3 mL Ampul] 1 vial NEB Q4HP PRN 07/06/20 Benzonatate [Tessalon Perles 100 mg Capsule] 100 mg PO Q8HP PRN #30 07/08/20 Guaifenesin [Mucinex Sr 600 mg Tablet.sa] 1,200 mg PO Q12 #10 tablet.sa 07/08/20 Levofloxacin [Levaquin 750 mg Tablet] 750 mg PO DAILY #3 tab 07/08/20 Prednisone [Deltasone 20 mg Tablet] 40 mg PO DAILY 2 Days #4 tablet 07/08/20 History of Present Illiness History of Present Illness: KRISTY KEANE is a 49 year old female with past medical history of asthma who presents to the ED for evaluation of 3-week history of simply worsening shortness of breath and productive cough. Reports dark yellow sputum and associated left-sided rib pain with cough. Patient was evaluated on 07/02/2020 for similar symptoms. Received breathing treatment was discharged home on doxycycline and steroids. Denies improvement in symptoms with treatment thus far. States symptoms consistent with previous asthma exacerbations. Historically has 2 asthma exacerbations per year with last summer 2018. She uses her Breo on a daily basis and typically uses rescue inhaler 3 times per week. Interestingly enough patient reports 1 week history of left lower extremity swelling greater than right, though denies edema erythema or warmth. States her job is rather active. Denies OCP use. No history of cancer. Without recent surgery or travel. Covid 19 test negative 07/01/2020. Evaluation in the emergency department patient is hemodynamically stable and afebrile. Not requiring oxygen supplementation at this time. CBC significant for leukocytosis. D-dimer elevated at 1.2. Potassium 3.4. Negative lactic acid. CT of the chest completed without pulmonary emboli notable for pneumonia. Patient was treated with single dose of ceftriaxone and IV steroid and referred to the hospitalist team for further evaluation and management. Hospital Course Hospital Course: Pneumonia Overall significant improvement in patient symptoms with treatment thus far. VSS, O2 sat >95% on RA. WBC WNL. Patient presented complaining of progressively worsening cough and shortness of breath regardless of outpatient therapy. CTA without PE. Patchy airspace disease throughout posterior left lower lobe concerning for multifocal pneumonia. - Likely cause elevated WBC and persistent symptoms. - Initiate CAP Therapy with azithromycin and ceftriaxone x2 days - BC without growth 24 hours. Discharge home Levaquin 750 mg daily x3 days Asthma exacerbation Progressive increase in symptoms regardless of outpatient therapy including prednisone, doxycycline and albuterol as needed. - Initiate IV steroid therapy with dexamethasone x3 days - Antibiotics as above - Scheduled breathing treatments - Incentive spirometer and encouraged pulm toilet. Discharge home with prednisone 40 mg p.o. x2 days. Continue Breo. Continue albuterol inhaler as needed. Continue albuterol neb as needed. Neutrophilic leukocytosis Resolved. WBC 10. - WBC 12.2 with ANC 8.8. - Treatment as above. D-dimer, elevated Elevated D-dimer 1.20 - CTA without evidence of pulmonary embolism - Rapid Covid negative - Left lower extremity swelling, venous Doppler ultrasound left lower extremity ordered pending Given obesity elevated D-dimer we will initiate prophylactic Lovenox therapy. Does not require further treatment in outpatient setting. Left leg swelling On initial presentation left lower extremity swelling without erythema, edema or warmth. Elevated D-dimer. Left lower extremity ultrasound without DVT. Physical Exam Vital Signs: Temp Pulse Resp BP Pulse Ox 98.1 F 91 16 130/60 H 94 07/08/20 13:36 07/08/20 13:42 07/08/20 13:42 07/08/20 13:36 07/08/20 13:42 Intake & Output 07/07/20 07/08/20 07/09/20 06:59 06:59 06:59 Intake Total 770 1919 300 Balance 770 1919 300 Weight 108 kg 108.2 kg Additional comments: General appearance: PRESENT: no acute distress, cooperative, obese - BMI 30.5 Neck exam: PRESENT: full ROM. ABSENT: JVD, lymphadenopathy, tenderness Respiratory exam: PRESENT: Very minimal expiratory wheeze. Lung sounds audible bilaterally. Cardiovascular exam: PRESENT: RRR, +S1, +S2. ABSENT: diastolic murmur, systolic murmur GI/Abdominal exam: PRESENT: soft. ABSENT: distended, firm, tenderness Neurological exam: PRESENT: alert, awake, oriented to person, oriented to place, oriented to time, oriented to situation, CN II-XII grossly intact. ABSENT: motor sensory deficit Psychiatric exam: PRESENT: appropriate affect, normal mood Skin exam: PRESENT: dry, intact, warm Results Laboratory Results: WBC 10.0 10^3/uL (4.0-10.5) 07/07/20 06:52 RBC 4.10 10^6/uL (3.72-5.28) 07/07/20 06:52 Hgb 11.4 g/dL (12.0-15.5) L 07/07/20 06:52 Hct 33.7 % (36.0-47.0) L 07/07/20 06:52 MCV 82 fl (80-97) 07/07/20 06:52 MCH 27.8 pg (27.0-33.4) 07/07/20 06:52 MCHC 33.8 g/dL (32.0-36.0) 07/07/20 06:52 RDW 13.6 % (11.5-14.0) 07/07/20 06:52 Plt Count 417 10^3/uL (150-450) 07/07/20 06:52 Lymph % (Auto) 16.9 % (13-45) 07/06/20 02:19 [place] % (Auto) 9.7 % (3-13) 07/06/20 02:19 Eos % (Auto) 0.9 % (0-6) 07/06/20 02:19 Baso % (Auto) 0.5 % (0-2) 07/06/20 02:19 Absolute Neuts (auto) 8.8 10^3/uL (1.7-8.2) H 07/06/20 02:19 Absolute Lymphs (auto) 2.1 10^3/uL (0.5-4.7) 07/06/20 02:19 Absolute Monos (auto) 1.2 10^3/uL (0.1-1.4) 07/06/20 02:19 Absolute Eos (auto) 0.1 10^3/uL (0.0-0.6) 07/06/20 02:19 Absolute Basos (auto) 0.1 10^3/uL (0.0-0.2) 07/06/20 02:19 Seg Neutrophils % 72.0 % (42-78) 07/06/20 02:19 D-Dimer 1.20 ug/mL (0.00-0.50) H 07/06/20 02:19 Sodium 137.8 mmol/L (137-145) 07/07/20 06:52 Potassium 4.0 mmol/L (3.6-5.0) 07/07/20 06:52 Chloride 100 mmol/L (98-107) 07/07/20 06:52 Carbon Dioxide 26 mmol/L (22-30) 07/07/20 06:52 Anion Gap 12 (5-19) 07/07/20 06:52 BUN 10 mg/dL (7-20) 07/07/20 06:52 Creatinine 0.38 mg/dL (0.52-1.25) L 07/07/20 06:52 Est GFR ( Amer) > 60 (>60) 07/07/20 06:52 Est GFR (MDRD) Non-Af > 60 (>60) 07/07/20 06:52 Glucose 235 mg/dL (75-110) H 07/07/20 06:52 Hemoglobin A1c % 5.4 % (4.7-6.0) 07/07/20 06:52 Lactic Acid 0.9 mmol/L (0.7-2.1) 07/06/20 02:19 Calcium 9.0 mg/dL (8.4-10.2) 07/07/20 06:52 Total Bilirubin 0.6 mg/dL (0.2-1.3) 07/06/20 02:19 Direct Bilirubin 0.2 mg/dL (0.0-0.4) 07/06/20 02:19 Neonat Total Bilirubin Not Reportable 07/06/20 02:19 Neonat Direct Bilirubin Not Reportable 07/06/20 02:19 Neonat Indirect Bili Not Reportable 07/06/20 02:19 AST 19 U/L (14-36) 07/06/20 02:19 ALT 14 U/L (<35) 07/06/20 02:19 Alkaline Phosphatase 78 U/L (38-126) 07/06/20 02:19 Total Protein 6.5 g/dL (6.3-8.2) 07/06/20 02:19 Albumin 3.3 g/dL (3.5-5.0) L 07/06/20 02:19 Jose Daniel Human Metapneumo PCR NOT DETECTED (NOT DETECT) 07/06/20 08:18 Adenovirus (PCR) NOT DETECTED (NOT DETECT) 07/06/20 08:18 B. pertussis DNA (PCR) NOT DETECTED (NOT DETECT) 07/06/20 08:18 B.parapertussis DNA PCR NOT DETECTED (NOT DETECT) 07/06/20 08:18 C. pneumoniae DNA (PCR) NOT DETECTED (NOT DETECT) 07/06/20 08:18 Coronavirus OC43 (PCR) NOT DETECTED (NOT DETECT) 07/06/20 08:18 Coronavirus HKU1 (PCR) NOT DETECTED (NOT DETECT) 07/06/20 08:18 Coronavirus 229E (PCR) NOT DETECTED (NOT DETECT) 07/06/20 08:18 Coronavirus NL63 (PCR) NOT DETECTED (NOT DETECT) 07/06/20 08:18 Influenza A (H1) PCR NOT DETECTED (NOT DETECT) 07/06/20 08:18 Influ A (H1N1/09) PCR NOT DETECTED (NOT DETECT) 07/06/20 08:18 Influenza A (H3) PCR NOT DETECTED (NOT DETECT) 07/06/20 08:18 Influenza Type A (PCR) NOT DETECTED (NOT DETECT) 07/06/20 08:18 Influenza Type B (PCR) NOT DETECTED (NOT DETECT) 07/06/20 08:18 M. pneumoniae (PCR) NOT DETECTED (NOT DETECT) 07/06/20 08:18 Parainfluenza 1 (PCR) NOT DETECTED (NOT DETECT) 07/06/20 08:18 Parainfluenza 2 (PCR) NOT DETECTED (NOT DETECT) 07/06/20 08:18 Parainfluenza 3 (PCR) NOT DETECTED (NOT DETECT) 07/06/20 08:18 Parainfluenza 4 (PCR) NOT DETECTED (NOT DETECT) 07/06/20 08:18 RSV (PCR) NOT DETECTED (NOT DETECT) 07/06/20 08:18 Entero/Rhino (PCR) NOT DETECTED (NOT DETECT) 07/06/20 08:18 SARS-CoV-2 (PCR) NOT DETECTED (NOT DETECT) 07/06/20 08:18 Impressions: Chest/Abdomen CTA 07/06/20 03:03 IMPRESSION: 1. No definite CT evidence to suggest acute or chronic pulmonary embolism, aortic aneurysm or aortic dissection. Evaluation of the subsegmental branches is limited due to breathing motion artifact. 2. Patchy airspace disease throughout the posterior left lower lobe and a portion of the posterior right lower lobe concerning for multifocal pneumonia. Venous Doppler Study 07/07/20 00:00 IMPRESSION: 1. NO EVIDENCE OF DVT OR SVT IN THE LEFT LEG. Plan Time Spent: Greater than 30 Minutes Stroke Is this a Stroke Patient?: No Acute Heart Failure Is this a Heart Failure Patient?: No
[2020-07-08] MEDS ORDERED: GUAIFENESIN 600 MG TABLET.SA PO SCH (22:00)
[2020-07-09] MEDS ORDERED: AZITHROMYCIN 250 MG TABLET PO SCH (10:00)
[2020-07-09] MEDS ORDERED: ENOXAPARIN SODIUM INJ 40 MG/0.4 ML DISP.SYRIN SUBCUT SCH (10:00)
== END 2020-07-08 15:00 | disposition home or self-care (01) ==
LOC: ER 23:29 → EH 07-06 08:11 → 5 07-06 11:26
PROVIDERS: ADMIT Internal Medicine; ATTEND Physician Assistant
DX: J18.9 Pneumonia, unspecified organism (principal); J45.901 Unspecified asthma with (acute) exacerbation; D72.828 Other elevated white blood cell count; R79.89 Other specified abnormal findings of blood chemistry; E87.6 Hypokalemia; M79.89 Other specified soft tissue disorders; E66.9 Obesity, unspecified; Z79.899 Other long term (current) drug therapy; Z20.828 Contact with and (suspected) exposure to other viral communicable diseases; Z79.51 Long term (current) use of inhaled steroids; Z68.30 Body mass index [BMI] 30.0-30.9, adult; Z86.39 Personal history of other endocrine, nutritional and metabolic disease; Z82.49 Family history of ischemic heart disease and other diseases of the circulatory system; Z82.5 Family history of asthma and other chronic lower respiratory diseases
CPT/HCPCS: 93005 ×2; 94640 ×5; 99285; 96375; 96365; 36415 ×2; 87040; 83605; 85025; 85027; 0202U ×23; 80048; 80053; 83036; 85379; 93971; 71045; 71275; 94799; 93010 ×2; G0378 ×4; J8540; J1200; J2930 ×2; J0696 ×3; J1650 ×3; J7060 ×2; J0456 ×2; S0028; J1100 ×3; J3490 ×3